=== PATIENT | male | born 1975 | race African-American/Black ===

== ENCOUNTER 2017-04-03 10:59 | Emergency (ER) | payer OTHER ==
[~2017-04-03] VITALS: Ht 167.6 cm; Wt 67.3 kg
[2017-04-03 12:59] LABS: ADD MIUA? YES; BILIRUBIN NEGATIVE; BLOOD NEGATIVE; COLOR YELLOW ((YELLOW)); GLUCOSE (STRIP) NEGATIVE; KETONES NEGATIVE; LEUKOCYTES NEGATIVE; NITRITE NEGATIVE; PROTEIN (STRIP) NEGATIVE; SPECIFIC GRAVITY 1.028 (1.000-1.030)
[2017-04-03 13:04] LABS: BACTERIA NONE SEEN /HPF; EPITHELIAL CELLS RARE /HPF; HYALINE CASTS 0-5 /LPF; MUCUS 3+ /LPF; RED BLOOD CELLS 0-5 /HPF (0-5); UCUL ADDED? NO; WHITE BLOOD CELLS 0-5 /HPF (0-5)
[2017-04-03] MEDS ORDERED: BUPROPION XL150 MG PO (13:08)
[2017-04-03] MEDS ORDERED: STRATTERA40 MG PO (13:08)
[2017-04-03] MEDS ORDERED: VIVITROL380 MG/3.4 IM (13:08)
[2017-04-03] MEDS ORDERED: BUSPAR30 MG PO (13:08)
[2017-04-03] MEDS ORDERED: VIBRAMYCIN100 MG PO (15:46)
[2017-04-03 16:03] VITALS: BP 112/78
[2017-04-05 13:36] LABS: CHLAMYDIA TRACHOMATIS NEGATIVE; NEISSERIA GONORRHOEAE NEGATIVE
== END 2017-04-03 16:04 | disposition home or self-care (01) ==
LOC: EME 10:59
PROVIDERS: Physician Assistant
DX: A64 Unspecified sexually transmitted disease (principal); R30.0 Dysuria; N44.2 Benign cyst of testis; F17.200 Nicotine dependence, unspecified, uncomplicated
CPT/HCPCS: 76870; 81003; 87491; 87591; 99281; 99284; J0696

== ENCOUNTER 2017-04-06 19:56 | Emergency (ER) | payer OTHER ==
[~2017-04-06] VITALS: Ht 167.6 cm; Wt 65.0 kg
[~2017-04-06 19:56] MED LIST: BUPROPION XL150 MG PO; BUSPAR30 MG PO; STRATTERA40 MG PO; VIBRAMYCIN100 MG PO; VIVITROL380 MG/3.4 IM
[2017-04-06 21:58] LABS: ADD MIUA? NO; BILIRUBIN NEGATIVE; BLOOD NEGATIVE; COLOR YELLOW ((YELLOW)); GLUCOSE (STRIP) NEGATIVE; KETONES 5; LEUKOCYTES NEGATIVE; NITRITE NEGATIVE; PROTEIN (STRIP) 30; SPECIFIC GRAVITY 1.035 (1.000-1.030); UCUL ADDED? NO; UROBILINOGEN 0.2 MG/DL (0.2-1.0)
[2017-04-06] MEDS ORDERED: CIPRO500 MG PO (22:48)
[2017-04-06] MEDS ORDERED: NAPROXEN500 MG PO (22:48)
[2017-04-06 23:06] VITALS: BP 126/82
== END 2017-04-06 23:10 | disposition home or self-care (01) ==
LOC: EME 19:56
PROVIDERS: Physician Assistant
DX: N50.811 Right testicular pain (principal); R10.30 Lower abdominal pain, unspecified; N50.89 Other specified disorders of the male genital organs; R30.0 Dysuria; F17.200 Nicotine dependence, unspecified, uncomplicated
CPT/HCPCS: 74176; 81003; 99281; 99284